=== PATIENT | female | born 1975 | race Caucasian/White ===

== ENCOUNTER 2018-02-16 10:47 | Emergency (ER) | payer BC ==
[~2018-02-16] VITALS: Ht 165.1 cm; Wt 93.9 kg
[2018-02-16] MEDS ORDERED: BUPR-42 PO (11:09)
[2018-02-16] MEDS ORDERED: IBUPROFEN 800 MG (MOTRIN) TAB PO STA (11:44)
--- NOTE | 2018-02-16 11:50 | ED Lower Extremity ---
General Chief Complaint: Lower Extremity Stated Complaint: R FOOT PAIN Nursing Triage Note: patient c/o R foot pain and swelling after driving here from [place]. Patient denies injury. Nursing Sepsis Screen: No Definite Risk History of Present Illness Date Seen by Provider: Feb 16, 2018 Time Seen by Provider: 11:35 Initial Comments 42 -year-old female presents for right lateral foot and ankle pain. The pain started yesterday evening, she has tried Tylenol and ibuprofen yesterday none today. She did put icy hot on the lateral aspect of her right foot today, with no relief of her symptoms. She has had no history of problems with her right foot. No history of blood clots, clotting disorders, recent surgery, does not take aspirin, and no injuries. She drove from [place] to [place], [place] yesterday, but stopped frequently to get out of car. She denies back pain, sciatica, radicular symptoms or paresthesias. Onset: yesterday Pain/Injury Location: right foot, right ankle Method of Injury: unknown Modifying Factors: Improves With Immobilization, Improves With Rest Allergies and Home Medications Allergies Coded Allergies: No Known Drug Allergies (Unverified , 02/16/18) Home Medications Cephalexin 500 Mg Capsule, 500 MG PO TID Prescribed by: MEY FOWLER on 02/16/18 1332 Patient Home Medication List Home Medication List Reviewed: Yes Constitutional: no symptoms reported, see HPI Past Xoqvehk-Qdeohr-Puvqwi Hx Patient Social History Alcohol Use: Denies Use Recreational Drug Use: No Type Used: Electronic/Vapor Recent Foreign Travel: No Contact w/Someone Who Travel: No Recent Infectious Disease Expo: No Physical Abuse: No Sexual Abuse: No Surgeries History of Surgeries: Yes Surgeries: Section, Tubal Ligation Respiratory History of Respiratory Disorde: No Cardiovascular History of Cardiac Disorders: No Neurological History of Neurological Disord: No Genitourinary History of Genitourinary Disor: No Gastrointestinal History of Gastrointestinal Di: No Musculoskeletal History of Musculoskeletal Dis: No Endocrine History of Endocrine Disorders: No HEENT History of HEENT Disorders: No Cancer History of Cancer: No Psychosocial History of Psychiatric Problem: Yes Behavioral Health Disorders: Anxiety Suicide Risk Score: 0 Integumentary History of Skin or Integumenta: No Blood Transfusions History of Blood Disorders: No Physical Exam Vital Signs Vital Signs - First Documented 02/16/18 10:57 Temp 98.7 Pulse 91 Resp 18 B/P (MAP) 137/86 (103) Pulse Ox 100 Capillary Refill : Less Than 3 Seconds General Appearance: WD/WN, no apparent distress Cardiovascular: normal peripheral pulses, regular rate, rhythm, no edema, other (pedal pulses 2+ and symmetric. Negative Prudencio on the right.) Respiratory: chest non-tender, lungs clear, normal breath sounds Gastrointestinal: normal bowel sounds, non tender, soft Ankles: right ankle normal range of motion, right ankle no evidence of injury, right ankle soft tissue tenderness, right ankle swelling, right ankle other ( mild erythema lateral aspect) Feet: right foot pain Neurologic/Psychiatric: no motor/sensory deficits, alert, normal mood/affect, oriented x 3 Skin: normal color, warm/dry Comments Neurovascular status intact right lower extremity symmetric with left. Progress/Results/Core Measures Results/Orders My Orders Orders - MEY FOWLER Foot, Right, 3 View (02/16/18 11:43) Ankle, Right, 3 Views (02/16/18 11:43) Us Venous Lower Ext Rt (02/16/18 11:43) Ibuprofen Tablet (Motrin Tablet) (02/16/18 11:44) Vital Signs/I&O Vital Sign - Last 12Hours 02/16/18 02/16/18 10:57 13:40 Temp 98.7 98.7 Pulse 91 91 Resp 18 18 B/P (MAP) 137/86 (103) 137/86 (103) Pulse Ox 100 100 Blood Pressure Mean: 103 Progress Note : Time: 11:35 Progress Note Initial evaluation completed, will give ibuprofen 800 mg, x-ray of the right foot and ankle, ultrasound right lower extremity. X-ray results reviewed with patient, recommended ultrasound. 1145 ibuprofen 800 mg orally for pain. 1300 patient reports pain has improved, inch Wil wrap applied to the right ankle and foot. Discharge instructions and return precautions reviewed with her. Diagnostic Imaging Diagonstic Imaging: Xray Plain Films/CT/US/NM/MRI: ankle Comments NAME: KUSUM SWAIN Sukhdeep [facility] REC#: [id number] PHYSICIAN: MEY FOWLER CC: MEY FOWLER; DONAL CHRISTINE MD Page 2 of 2 RADIOLOGY REPORT VIA [facility] [place], [place] CC: MEY FOWLER; DONAL CHRISTINE MD Page 1 of 1 RADIOLOGY REPORT NAME: SWAIN,ANNA D [facility] REC#: [id number] PT STATUS: REG ER : 1975 PHYSICIAN: MEY OFWLER ADMIT DATE: 02/16/18/ER Signed Date of Exam: 02/16/18 ANKLE, RIGHT, 3 VIEWS Clinical indication: Patient complains of pain and swelling in right lateral foot and ankle. No known injury. Patient states she spent a long time sitting and driving. Exams: 1: X-ray of the right foot, 3 views. 2: X-ray of the right ankle, 3 views. Comparison: None. Findings and impression: 1: There is a group of small calcification seen posteriorly adjacent to the plantar aspect of the cuboid bone of unknown age. Clinical correlation for pain in this region is suggested to evaluate for acute process such as avulsion injury versus chronic soft tissue calcifications. 2: Otherwise, there is no acute fracture or dislocation. 3: There is a calcaneal hypertrophic spur at the Achilles attachment. There is mild spurring of the first MTP joint. 4: The remainder of the ankle and right foot are unremarkable. Dictated by: Dictated on workstation # [id number] Dict: 02/16/18 1210 Trans: 02/16/18 121 Interpreted by: DONAL CHRISTINE MD Electronically signed by: DONAL CHRISTINE MD 02/16/18 1214 Reviewed: Reviewed by Nm Diagonstic Imaging: Ultrasound Plain Films/CT/US/NM/MRI: leg (right) Comments NAME: SWAIN,ANNA D [facility] REC#: [id number] PT STATUS: REG ER : 1975 PHYSICIAN: MEY FOWLER ADMIT DATE: 02/16/18/ER Draft Date of Exam:02/16/18 US VENOUS LOWER EXT RT PROCEDURE: US right lower extremity venous. TECHNIQUE: Multiple real-time grayscale images were obtained over the right lower extremity in various projections. Additional duplex Doppler and color Doppler images were also obtained. INDICATION: Right lower extremity swelling and pain. COMPARISON: None. FINDINGS: The deep and superficial venous system is patent. There is no mass or DVT. There is a 3 x 1 cm fluid collection seen lateral to the ankle, possibly hematoma. Please correlate clinically. IMPRESSION: 1. No DVT 2. Possible hematoma adjacent to the lateral aspect of the ankle. Dictated on workstation # [id number] Dict: 02/16/18 1253 Trans: 02/16/18 1258 [facility] [id number] Interpreted by: RUBIO AMARAL Electronically signed by: Reviewed: Reviewed by Me Departure Impression Impression: Primary Impression: Tendinitis of ankle or foot Additional Impression: Cellulitis Qualified Codes: L03.115 - Cellulitis of right lower limb Disposition: HOME, SELF-CARE Condition: Stable Departure-Patient Inst. Decision time for Depature: 13:15 Referrals: NO,LOCAL PHYSICIAN (PCP/Family) Primary Care Physician Patient Instructions: Cellulitis (Skin Infection), Adult (DC), Tendonitis (DC) Add. Discharge Instructions: Alternate heat and ice packs to the right ankle and foot, elevate 20 minutes every 2 hours. Use Wil wrap for the next 2-3 days. Activity as tolerated. Alternate between ibuprofen 600 mg and Tylenol 650 mg every 4 hours for pain or fever. Antibiotic as prescribed. Follow-up with your primary care provider in [place] in 2-3 days if symptoms worsen or do not improve. Return to emergency department for new injuries or problems. All discharge instructions reviewed with patient and/or family. Voiced understanding. Scripts Cephalexin (Keflex) 500 Mg Capsule 500 MG PO TID for 7 Days, #21 CAP 0 Refills Prov: MEY FOWLER 02/16/18 MEY FOWLER Feb 16, 2018 11:50
--- NOTE | 2018-02-16 12:17 | Diagnostic Imaging Report ---
Clinical indication: Patient complains of pain and swelling in right lateral foot and ankle. No known injury. Patient states she spent a long time sitting and driving. Exams: 1: X-ray of the right foot, 3 views. 2: X-ray of the right ankle, 3 views. Comparison: None. Findings and impression: 1: There is a group of small calcification seen posteriorly adjacent to the plantar aspect of the cuboid bone of unknown age. Clinical correlation for pain in this region is suggested to evaluate for acute process such as avulsion injury versus chronic soft tissue calcifications. 2: Otherwise, there is no acute fracture or dislocation. 3: There is a calcaneal hypertrophic spur at the Achilles attachment. There is mild spurring of the first MTP joint. 4: The remainder of the ankle and right foot are unremarkable. Dictated by: Dictated on workstation # [id number]
--- NOTE | 2018-02-16 12:58 | Diagnostic Imaging Report ---
PROCEDURE: US right lower extremity venous. TECHNIQUE: Multiple real-time grayscale images were obtained over the right lower extremity in various projections. Additional duplex Doppler and color Doppler images were also obtained. INDICATION: Right lower extremity swelling and pain. COMPARISON: None. FINDINGS: The deep and superficial venous system is patent. There is no mass or DVT. There is a 3 x 1 cm fluid collection seen lateral to the ankle, possibly hematoma. Please correlate clinically. IMPRESSION: 1. No DVT 2. Possible hematoma adjacent to the lateral aspect of the ankle. Dictated by: Dictated on workstation # [id number]
[2018-02-16] MEDS ORDERED: CEPH-507 PO (13:32)
[2018-02-16 13:40] VITALS: BP 137/86
== END 2018-02-16 13:40 | disposition home or self-care (01) ==
LOC: EDUNIT# 10:47 → ER 10:50
DX: M77.9 Enthesopathy, unspecified (principal); L03.115 Cellulitis of right lower limb; F41.9 Anxiety disorder, unspecified; Z98.51 Tubal ligation status; Z87.59 Personal history of other complications of pregnancy, childbirth and the puerperium
CPT/HCPCS: 73610; 73630